=== PATIENT | male | born 1985 ===

== ENCOUNTER 2022-03-13 04:11 | Emergency (ER) | payer SELFPAY ==
[~2022-03-13] VITALS: Ht 167.7 cm; Wt 82.0 kg
--- NOTE | 2022-03-13 04:28 | ED Psychosocial ---
General Chief Complaint: Overdose Stated Complaint: OVERDOSE Source: patient, EMS Exam Limitations: no limitations (NA MARROQUIN MD) History of Present Illness Date Seen by Provider: Mar 13, 2022 Time Seen by Provider: 04:15 Initial Comments Patient is a 36-year-old male who presents to the emergency department after an overdose of a "whole bottle" of Tylenol approximately 45 minutes prior to arrival. Patient would have done this ingestion at approximately 330 this morning. He is unsure exactly how many Tylenol he took but it was "a lot". He states "I was not really sure what I was thinking". When I asked him if he continues to be suicidal or feel like he would be better off he said "I am going to say yes". No homicidal ideation. No auditory or visual hallucinations. He has never had an overdose before. He states he has no chronic medical conditions. He recently moved here a few days ago. He was in an argument with his significant other whom he has been with for 8 years and shares 3 children. Denies recent illness such as fever, chills, cough, congestion. No bowel or bladder issues. No flulike or COVID-like symptoms. He states he has a little "burning" in his chest and upper abdomen. Slightly nauseous. He did vomit at the house but EMS stated no pill fragments were seen. Timing/Duration: just prior to arrival Severity: severe Associated Symptoms: ingestion, suicidal ideation (NA MARROQUIN MD) Allergies and Home Medications Allergies Coded Allergies: No Known Drug Allergies (Unverified , 03/13/22) Patient Home Medication List Home Medication List Reviewed: Yes (NA MARROQUIN MD) Review of Systems Constitutional: see HPI EENTM: no symptoms reported Respiratory: no symptoms reported Cardiovascular: chest pain ("burning") Gastrointestinal: abdominal pain, nausea, vomiting Genitourinary: no symptoms reported Musculoskeletal: no symptoms reported Skin: no symptoms reported Psychiatric/Neurological: Depressed, Emotional Problems (suicidal) (NA MARROQUIN MD) All Other Systems Reviewed Negative Unless Noted: Yes (NA MARROQUIN MD) Physical Exam Vital Signs - First Documented 03/13/22 03/13/22 04:21 07:00 Temp 36.4 Pulse 87 Resp 18 B/P (MAP) 142/99 (113) Pulse Ox 96 O2 Delivery Room Air (YOLANDA MORATAYA MD) Capillary Refill : (NA MARROQUIN MD) Height, Weight, BMI Height: '" Weight: lbs. oz. 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 No AV hallucinations) Appearance/Memory: appropriate appearance, neat, no memory impairment Behavior/Eye Contact: cooperative, good eye contact, normal speech Thoughts/Hallucinations: normal thought pattern, no apparent hallucination Skin: normal color, warm/dry (NA MARROQUIN MD) Progress/Results/Core Measures Results/Orders Lab Results Laboratory Tests Test 03/13/22 04:18 03/13/22 04:32 03/13/22 07:30 03/13/22 09:33 Range/Units White Blood Count 8.3 4.3-11.0 10^3/uL Red Blood Count 5.22 4.30-5.52 10^6/uL Hemoglobin 15.2 13.3-17.7 g/dL Hematocrit 46 40-54 % Mean Corpuscular Volume 88 80-99 fL Mean Corpuscular Hemoglobin 29 25-34 pg Mean Corpuscular Hemoglobin Concent 33 32-36 g/dL Red Cell Distribution Width 12.9 10.0-14.5 % Platelet Count 284 130-400 10^3/uL Mean Platelet Volume 8.7 L 9.0-12.2 fL Immature Granulocyte % (Auto) 0 % Neutrophils (%) (Auto) 47 42-75 % Lymphocytes (%) (Auto) 37 12-44 % Monocytes (%) (Auto) 10 0-12 % Eosinophils (%) (Auto) 6 0-10 % Basophils (%) (Auto) 1 0-10 % Neutrophils # (Auto) 3.9 1.8-7.8 10^3/uL Lymphocytes # (Auto) 3.0 1.0-4.0 10^3/uL Monocytes # (Auto) 0.8 0.0-1.0 10^3/uL Eosinophils # (Auto) 0.5 H 0.0-0.3 10^3/uL Basophils # (Auto) 0.0 0.0-0.1 10^3/uL Immature Granulocyte # (Auto) 0.0 0.0-0.1 10^3/uL Sodium Level 138 137 135-145 MMOL/L Potassium Level 3.4 L 3.3 L 3.6-5.0 MMOL/L Chloride Level 107 106 98-107 MMOL/L Carbon Dioxide Level 19 L 22 21-32 MMOL/L Anion Gap 12 9 5-14 MMOL/L Blood Urea Nitrogen 9 8 7-18 MG/DL Creatinine 0.93 1.09 0.60-1.30 MG/DL Estimat Glomerular Filtration Rate 108 89 BUN/Creatinine Ratio 10 7 Glucose Level 109 H 100 70-105 MG/DL Calcium Level 8.9 8.7 8.5-10.1 MG/DL Corrected Calcium 8.8 8.8 8.5-10.1 MG/DL Total Bilirubin 0.3 0.3 0.1-1.0 MG/DL Aspartate Amino Transf (AST/SGOT) 22 20 5-34 U/L Alanine Aminotransferase (ALT/SGPT) 29 27 0-55 U/L Alkaline Phosphatase 84 80 40-136 U/L Total Protein 7.7 7.2 6.4-8.2 GM/DL Albumin 4.1 3.9 3.2-4.5 GM/DL Salicylates Level < 5.0 L 5.0-20.0 MG/DL Serum Alcohol < 10 <10 MG/DL Urine Color YELLOW Urine Clarity CLEAR Urine pH 6.0 5-9 Urine Specific [place] 1.015 L 1.016-1.022 Urine Protein NEGATIVE NEGATIVE Urine Glucose (UA) NEGATIVE NEGATIVE Urine Ketones NEGATIVE NEGATIVE Urine Nitrite NEGATIVE NEGATIVE Urine Bilirubin NEGATIVE NEGATIVE Urine Urobilinogen 0.2 < = 1.0 MG/DL Urine Leukocyte Esterase NEGATIVE NEGATIVE Urine RBC (Auto) NEGATIVE NEGATIVE Urine RBC NONE /HPF Urine WBC RARE /HPF Urine Squamous Epithelial Cells 0-2 /HPF Urine Crystals NONE /LPF Urine Bacteria TRACE /HPF Urine Casts NONE /LPF Urine Mucus NEGATIVE /LPF Urine Culture Indicated NO Urine Opiates Screen NEGATIVE NEGATIVE Urine Oxycodone Screen NEGATIVE NEGATIVE Urine Methadone Screen NEGATIVE NEGATIVE Urine Propoxyphene Screen NEGATIVE NEGATIVE Urine Barbiturates Screen NEGATIVE NEGATIVE Ur Tricyclic Antidepressants Screen NEGATIVE NEGATIVE Urine Phencyclidine Screen NEGATIVE NEGATIVE Urine Amphetamines Screen NEGATIVE NEGATIVE Urine Methamphetamines Screen NEGATIVE NEGATIVE Urine Benzodiazepines Screen NEGATIVE NEGATIVE Urine Cocaine Screen NEGATIVE NEGATIVE Urine Cannabinoids Screen NEGATIVE NEGATIVE Acetaminophen Level 118 *H 76 #*H 10-30 UG/ML Prothrombin Time 14.4 12.2-14.7 SEC INR Comment 1.1 0.8-1.4 (YOLANDA MORATAYA MD) My Orders Orders - YOLANDA MORATAYA MD General/Regular (03/13/22 Breakfast) Acetaminophen (03/13/22 09:30) Comprehensive Metabolic Panel (03/13/22 09:30) Protime With Inr (03/13/22 09:30) Bh Status Checks/Observation O Q15M (03/13/22 13:22) (YOLANDA MORATAYA MD) Medications Given in ED Current Medications Medications Dose Ordered Sig/[place] Route Start Time Stop Time Status Last Admin Dose Admin Charcoal 50 gm ONCE ONCE PO 03/13/22 04:30 03/13/22 04:31 DC 03/13/22 04:40 50 GM Ondansetron HCl 4 mg ONCE ONCE IVP 03/13/22 04:30 03/13/22 04:31 DC 03/13/22 04:35 4 MG (YOLANDA MORATAYA MD) Vital Signs/I&O 03/13/22 03/13/22 04:21 07:00 Temp 36.4 36.5 Pulse 87 73 Resp 18 16 B/P (MAP) 142/99 (113) 120/98 (105) Pulse Ox 96 O2 Delivery Room Air (YOLANDA MORATAYA MD) Progress Progress Note : Time: 08:53 Progress Note I assumed care of this patient from Dr. Marroquin at shift change. He has no complaints at this time. Labs have been reviewed. Acetaminophen level was 118. This is below the treatment cutoff on the nomogram but still significantly elevated. I discussed with poison control. A repeat Tylenol level in 2 hours along with a repeat CMP and an INR is recommended. If he still remains under the treatment level on the nomogram, he may be medically cleared and screened for psychiatric placement. (YOLANDA MORATAYA MD) Initial ECG Impression Date: Mar 13, 2022 Initial ECG Impression Time: 04:21 Initial ECG Rate: 82 Initial ECG Rhythm: Normal Sinus Initial ECG Intervals: Normal Initial ECG Impression: Normal (NA MARROQUIN MD) Departure Impression Primary Impression: Intentional acetaminophen overdose Qualified Codes: T39.1X2A - Poisoning by 4-aminophenol derivatives, intentional self-harm, initial encounter Additional Impression: Suicidal ideations Disposition: 01 HOME, SELF-CARE Condition: Improved Departure-Patient Inst. Decision time for Depature: 14:28 (YOLANDA MORATAYA MD) Referrals: UNKNOWN (PCP) Primary Care Physician Patient Instructions: ALCOHOL AND SUBSTANCE ABUSE, Suicide Prevention Add. Discharge Instructions: Use prescribed and [id number] medications only as directed. Follow-up with your primary care provider soon as possible. Call on Tuesday or Tuesday to schedule a follow-up. Follow-up with the behavioral health team as directed per your safety plan provided by the behavioral health screener. You can always call 911, return to the emergency room, or call the crisis line at [phone] if you have any further mental health crises or suicidal ideation. All discharge instructions reviewed with patient and/or family. Voiced understanding. NA MARROQUIN MD Mar 13, 2022 04:28 YOLANDA MORATAYA MD Mar 13, 2022 08:55
[2022-03-13] MEDS ORDERED: CHARCOAL/AQUEOUS 50 GM/240 ML BTL PO ONE (04:30)
[2022-03-13] MEDS ORDERED: ONDANSETRON 4 MG/2 ML (SDV) Z0FRAN IVP ONE (04:30)
[2022-03-13 04:32] LABS: BASOPHILS % (AUTO) 1 % (0-10); EOSINOPHILS # (AUTO) 0.5 10^3/uL (0.0-0.3); EOSINOPHILS % (AUTO) 6 % (0-10); HEMATOCRIT 46 % (40-54); HEMOGLOBIN 15.2 g/dL (13.3-17.7); LYMPHOCYTES % (AUTO) 37 % (12-44); MEAN CORPUSCULAR HEMOGLOBIN 29 pg (25-34); MEAN CORPUSCULAR HGB CONC 33 g/dL (32-36); MEAN CORPUSCULAR VOLUME 88 fL (80-99); MEAN PLATELET VOLUME 8.7 fL (9.0-12.2); MONOCYTES # (AUTO) 0.8 10^3/uL (0.0-1.0); MONOCYTES % (AUTO) 10 % (0-12); NEUTROPHILS # (AUTO) 3.9 10^3/uL (1.8-7.8); NEUTROPHILS % (AUTO) 47 % (42-75); PLATELET COUNT 284 10^3/uL (130-400); WHITE BLOOD COUNT 8.3 10^3/uL (4.3-11.0)
[2022-03-13 04:38] LABS: BILIRUBIN,URINE NEGATIVE (NEGATIVE); CLARITY,URINE CLEAR; COLOR,URINE YELLOW; GLUCOSE, URINE (UA) NEGATIVE (NEGATIVE); KETONES,URINE NEGATIVE (NEGATIVE); LEUKOCYTE ESTERASE ,URINE NEGATIVE (NEGATIVE); NITRITE,URINE NEGATIVE (NEGATIVE); PROTEIN,URINE NEGATIVE (NEGATIVE)
[2022-03-13 04:45] LABS: ALBUMIN 4.1 GM/DL (3.2-4.5)
[2022-03-13 04:46] LABS: CHLORIDE 107 MMOL/L (98-107); POTASSIUM 3.4 MMOL/L (3.6-5.0); SODIUM 138 MMOL/L (135-145)
[2022-03-13 04:47] LABS: CALCIUM 8.9 MG/DL (8.5-10.1)
[2022-03-13 04:47] LABS: BACTERIA,URINE TRACE /HPF; SQUAMOUS EPITHELIAL CELL,UR 0-2 /HPF; WBC,URINE RARE /HPF
[2022-03-13 04:48] LABS: GLUCOSE 109 MG/DL (70-105); TOTAL PROTEIN 7.7 GM/DL (6.4-8.2)
[2022-03-13 04:49] LABS: CARBON DIOXIDE 19 MMOL/L (21-32)
[2022-03-13 04:50] LABS: BILIRUBIN,TOTAL 0.3 MG/DL (0.1-1.0)
[2022-03-13 04:50] LABS: AMPHETAMINE SCREEN, URINE NEGATIVE (NEGATIVE); BARBITURATE SCREEN URINE NEGATIVE (NEGATIVE); BENZODIAZEPINES SCREEN URINE NEGATIVE (NEGATIVE); CANNABINOID SCREEN, URINE NEGATIVE (NEGATIVE); COCAINE SCREEN URINE NEGATIVE (NEGATIVE); METHADONE STAT NEGATIVE (NEGATIVE); OPIATE SCREEN URINE NEGATIVE (NEGATIVE); OXYCODONE STAT NEGATIVE (NEGATIVE); PROPOXYPHENE STAT NEGATIVE (NEGATIVE); TRICYCLIC ANTIDEPRESSANTS SCRE NEGATIVE (NEGATIVE)
[2022-03-13 04:52] LABS: ALKALINE PHOSPHATASE 84 U/L (40-136); CREATININE SERUM 0.93 MG/DL (0.60-1.30); GFR ESTIMATED 108
[2022-03-13 04:53] LABS: BUN/CREATININE RATIO 10
[2022-03-13 04:54] LABS: SALICYLATE < 5.0 MG/DL (5.0-20.0)
[2022-03-13 04:55] LABS: ALANINE AMINOTRANSFERASE 29 U/L (0-55)
[2022-03-13 09:50] LABS: INR 1.1 (0.8-1.4); PROTHROMBIN TIME PATIENT 14.4 SEC (12.2-14.7)
[2022-03-13 09:51] LABS: ALBUMIN 3.9 GM/DL (3.2-4.5); POTASSIUM 3.3 MMOL/L (3.6-5.0)
[2022-03-13 09:53] LABS: CALCIUM 8.7 MG/DL (8.5-10.1)
[2022-03-13 09:54] LABS: TOTAL PROTEIN 7.2 GM/DL (6.4-8.2)
[2022-03-13 09:56] LABS: BILIRUBIN,TOTAL 0.3 MG/DL (0.1-1.0)
[2022-03-13 09:58] LABS: CREATININE SERUM 1.09 MG/DL (0.60-1.30)
[2022-03-13] MEDS ORDERED: NICOTINE 2 MG LOZENGE (COMMIT) MM STA (14:57)
[2022-03-13 15:36] VITALS: BP 129/98
== END 2022-03-13 15:40 | disposition home or self-care (01) ==
LOC: ER 04:14
DX: R45.851 Suicidal ideations (principal); T39.1X2A Poisoning by 4-Aminophenol derivatives, intentional self-harm, initial encounter; Z28.310 Unvaccinated for COVID-19
CPT/HCPCS: 80053; 80306; 81000; 85025; 85610; 93005; 93041; 96374; 99284; G0480 ×3; 36415; 80320; 80329